=== PATIENT | female | born 1940 | race Caucasian/White ===

== ENCOUNTER 2017-10-15 13:10 | Inpatient (IN) | payer OTHER, SELFPAY ==
[~2017-10-15] VITALS: Ht 157.5 cm; Wt 59.0 kg
[2017-10-15 13:37] VITALS: BP 146/50
[2017-10-15] MEDS ORDERED: ZOCOR40 MG PO (13:44)
[2017-10-15] MEDS ORDERED: ALENDRONATE SODI5 MG PO (13:44)
[2017-10-15] MEDS ORDERED: MOBIC7.5 MG PO (13:44)
[2017-10-15] MEDS ORDERED: ASPIR 8181 MG PO (13:45)
[2017-10-15] MEDS ORDERED: CALCIUM 600 +1 EAC1 PO (13:45)
[2017-10-15] MEDS ORDERED: TRAZODONE HCL100 MG PO (13:45)
[2017-10-15] MEDS ORDERED: UNICOMPLEX M TA1 TA1 PO (13:46)
[2017-10-15 14:33] LABS: HEMATOCRIT 39.6 % (37.0-47.0); HEMOGLOBIN 13.1 gm/dL (12.0-15.0); MCH 31.3 pg (26.0-34.0); MCV 94.9 fL (80.0-100.0); MPV 7.8 fl. (7.2-11.1); NUCLEATED RBCS 0 /100WBC; PLATELET COUNT* 167 thou/uL (150-400); RBC 4.18 mil/uL (4.20-5.00); RDW-CV 12.6 % (10.5-14.5); WBC 13.8 thou/uL (4.0-11.0)
[2017-10-15 14:41] LABS: CREATININE 0.7 mg/dL (0.6-1.3); POTASSIUM 3.4 mmol/L (3.5-5.1)
[2017-10-15 14:45] LABS: APTT 22.1 Seconds (25.0-31.3); INR 1.1; PROTIME 10.4 Seconds (9.20-11.50)
[2017-10-15 14:55] LABS: ABSOLUTE BASOPHILS 0.1 thou/uL (0.0-0.2); ABSOLUTE LYMPHOCYTES 0.7 thou/uL (0.8-5.3); ABSOLUTE MONOCYTES 0.7 thou/uL (0.0-1.2); ABSOLUTE NEUTROPHILS 12.3 thou/uL (1.6-8.1)
[2017-10-15 15:01] LABS: PLATELET ESTIMATE ADEQUATE
[2017-10-15 17:50] VITALS: BP 153/42
[2017-10-15 22:05] VITALS: BP 120/50
--- NOTE | 2017-10-15 22:59 | NUR ---
PATIENT ARRIVED BY BED FROM PACU, STABLE CONDITION. ALERT AND ORIENTED X4. DENIES PAIN AT THIS TIME. VITALS STABLE. CONT PULSE OX IN PLACE, O2 SATS 99% ON 2L O2NC. CONTINUE TO MONITOR.
[2017-10-16] VITALS: BP 119/53
[2017-10-16 04:05] VITALS: BP 129/32
--- NOTE | 2017-10-16 04:19 | NUR ---
PATIENT RESTED QUIETLY THROUGHOUT THE NIGHT ON HOURLY ROUNDS. DENIES NEED FOR PAIN MEDICATION. REPOSITIONED FOR COMFORT. DRESSING TO RIGHT HIP CLEAN, DRY AND INTACT. VITALS STABLE ON 2L O2 NC. CONTINUE TO MONITOR.
[2017-10-16 04:32] LABS: HEMATOCRIT 26.5 % (37.0-47.0)
[2017-10-16 07:30] VITALS: BP 115/52
[2017-10-16 09:09] LABS: URINE BILIRUBIN NEGATIVE (Negative); URINE BLOOD TRACE (Negative); URINE CLARITY CLEAR; URINE COLOR YELLOW; URINE GLUCOSE-RANDOM NEGATIVE (Negative); URINE KETONES NEGATIVE (Negative); URINE NITRITE-REFLEX NEGATIVE (Negative); URINE PROTEIN NEGATIVE (Negative); URINE SPECIFIC GRAVITY <= 1.005 (1.005-1.030); URINE UROBILINOGEN 0.2 E.U./dl (0.2-1.0)
[2017-10-16 09:10] LABS: URINE LEUKOCYTES-REFLEX 2+ (Negative)
--- NOTE | 2017-10-16 09:54 | CON ---
[address] [address] CONSULTATION Name: MALATHI PLASENCIA Room: [address] IN [facility]#: [id number] Admission: 10/15/17 Attend Phys: Kwesi Romero MD Discharge: Date of : 40 Report #: [id number] THIS REPORT FOR: //name// CC: Titi Romero HISTORY OF PRESENT ILLNESS: This 76-year-old female seen complaining of severe pain about her right hip. She fell at her residence and was brought to the Emergency Room, where she was found to have a comminuted intertrochanteric and subtrochanteric fracture of her right hip. She was advised to become hospitalized for operative care of her injury. Once she is medically stable, she will be taken to surgery for an open reduction and internal fixation of her comminuted intertrochanteric and subtrochanteric fracture of the right femur. The risks and benefits of surgery along with possible complications were discussed with her. DIAGNOSIS: Displaced comminuted right hip fracture. <ELECTRONICALLY SIGNED> By: Aureliano Richter MD 10/16/17 0954 20 2046Jolynn Richter MD /nt
--- NOTE | 2017-10-16 09:54 | OP ---
[address] [address] OPERATIVE REPORT Name: MALATHI PLASENCIA Room: [address] IN [facility]#: [id number] Admission: 10/15/17 Attend Phys: Kwesi Romero MD Discharge: Date of : 40 Report #: [id number] THIS REPORT FOR: //name// CC: Titi Romreo PREOPERATIVE DIAGNOSIS: Displaced intertrochanteric fracture of the right hip. POSTOPERATIVE DIAGNOSIS: Displaced intertrochanteric fracture of the right hip. OPERATIVE PROCEDURE PERFORMED: Open reduction internal fixation with gamma nailing of fracture of the right hip. DESCRIPTION OF PROCEDURE: Following the procedure, under general endotracheal anesthesia, the patient was placed on to the fracture table in the supine position. The right leg was placed in traction, which reduced the fracture and held the fracture in anatomic position. A routine prep and drape was performed of the right hip and leg. Following a timeout procedure, a 2 inch skin incision was made at the tip of the greater trochanter. The incision was carried through the skin and subcutaneous tissue and fascia. An awl was used to make an opening at the piriformis fossa. A guidewire was passed across the fracture site under C-arm fluoroscopy control. A 13 mm flexible reamer was used over the guidewire. A 15.5 mm flexible reamer was used to ream the greater trochanteric area. A 38 cm gamma nail was inserted under C-arm fluoroscopy control. A 2 cm incision was made over the lateral aspect of the hip and a guidewire was passed through the gamma nail into the femoral head under C-arm fluoroscopy guidance. A compression screw was then inserted through the gamma nail and into the femoral head and it was appropriately locked. The tip of the gamma nail was locked with its 2 transfixing screws under C-arm fluoroscopy guidance. The wounds were irrigated and closed with 2-0 Vicryl for the fascial layer. The skin was closed with skin jeannette. A sterile dressing was applied. The patient tolerated the procedure well and was returned to the recovery area in good condition. <ELECTRONICALLY SIGNED> By: Aureliano Richter MD 10/16/17 0954 20 2323John Rohit Richter MD /nt
[2017-10-16 09:56] LABS: BACTERIA-REFLEX 1-9 Few /HPF (None Seen); CASTS None Seen /LPF (None Seen); CRYSTALS None Seen /LPF (None Seen); MUCUS 0-3 Light strn/LPF (None Seen); SQUAMOUS 0-3 Few /LPF (0-3); URINE RBC 0-2 Rare /HPF (0-2); URINE WBC-REFLEX 6-15 Few /HPF (0-5)
--- NOTE | 2017-10-16 14:40 | EKG ---
[place] [address] ELECTROCARDIOGRAM REPORT Name: PLASENCIAMALATHI Aster Room: [address] ADM IN [facility]#: [id number] Admission: 10/15/17 Attend Phys: Kwesi Romero MD Discharge: Date of : 40 Report #: [id number] THIS REPORT FOR: //name// [facility] ED Test Date: 2017-10-15 Test Time: 14:54:11 Pat Name: MALATHI PLASENCIA Department: Room: [facility] Gender: F Senior Mobile Application Developer: [place] : 1940 Requested By: Guero Larios Order Number: [id number] MD: Westley Flores Measurements Intervals [place] Rate: 72 P: 41 WV: 140 QRS: 64 QRSD: 78 T: 64 QT: 379 QTc: 415 Interpretive Statements Sinus rhythm No previous ECG available for comparison Electronically Signed On 10-16-2017 14:40:11 [employer]LOCK ELAST[employer] ATTACHER by Westley Flores [email or web address] <ELECTRONICALLY SIGNED> By: Westley Flores MD, [facility] 10/16/17 1440 1454 1454 Westley Flores MD, FACC /EPI
--- NOTE | 2017-10-16 14:48 | NUR ---
PT.UP IN CHAIR. VISITOR PRESENT. SHE SAID VISITOR COULD STAY FOR CONVERSATION. VISITOR IS HER DAUGHTER'S MOTHER IN LAW. PT.ALERT AND ORIENTED. STATED SHE LIVES IN AN APT.ATTACHED TO HER DAUGHTER'S HOUSE. NO STAIRS,IT IS [place]. HER DAUGHER WORKS DURING THE DAY UNTIL ABOUT 1:30 IN THE AFTERNOON. FRIEND AT BEDSIDE DRIVES HER TO APPTS.DURING THE DAY,ETC. PT.NO LONGER DRIVES. SHE DOES NOT USE ANY DME. NO HX OF OR SNF. GAVE HER A LIST OF INSURANCE CONTRACTED SNFS SHE WOULD GO TO IF NEEDED. DISCHARGE PLAN TO BE DETERMINED ON HOW PT. DOES IN THERAPY. FRIEND SAID SHE COULD COME TO STAY AT HER HOME,IF NEEDED. SHE LIVES IN [place]. SHE HAS STEPS TO GET INTO HER HOME,HOWEVER. 7 STEPS THEN 5 TO GET IN. CM WILL FOLLOW UP TOMORROW.
[2017-10-16 16:06] VITALS: BP 118/59
--- NOTE | 2017-10-16 16:14 | NUR ---
PATIENT REMAINED ALERT AND ORIENTED X'S 4. VITAL SIGNS AND SPO2 STABLE. SKIN LOOKS GOOD. DRESSING OVER RIGHT HIP CLEAN, DRY, INTACT. TOLERATED ANTIBIOTICS. ARGUETA PULLED, VOIDED WITHOUT ISSUE. TOLERATED PT/OT. SCD'S IN PLACE, NO TEDS ORDERED. TOLERATED Q.2.TURNS. TOE TOUCH WEIGHT BEARING. PAIN WELL CONTROLLED WITH PAIN MEDS. COMPLETED HOURLY ROUNDING, CALL LIGHT WITHIN REACH. WILL CONTINUE TO MONITOR.
[2017-10-16 19:35] VITALS: BP 130/39
[2017-10-17 00:13] VITALS: BP 125/39
[2017-10-17 04:20] LABS: HEMATOCRIT 24.3 % (37.0-47.0); HEMOGLOBIN 8.3 gm/dL (12.0-15.0)
[2017-10-17 04:21] VITALS: BP 133/38
--- NOTE | 2017-10-17 06:35 | NUR ---
PT PROGRESSING TOWARD GOALS. PT WAS ABLE TO AMBULATE WITH ASSISTANCE TO THE BSC. PT REQUESTED TO STAY ON HER LEFT SIDE DURING THE EVENING. PT WAS ABLE TO REST WITHOUT COMPLAINT OF PAIN.
[2017-10-17 07:45] VITALS: BP 125/58
--- NOTE | 2017-10-17 15:30 | NUR ---
SPOKE WITH PT.AND DAUGHTER ABOUT DISCHARGE PLANNING. THEY HAD LOOKED AT LIST I HAD GIVEN TO PT.YESTERDAY. THEIR FIRST CHOICE WOULD BE [facility] AND [facility] (EITHER ONE,DAUGHTER,STATED). WILL MAKE REFERRAL TO [facility].
--- NOTE | 2017-10-17 16:06 | NUR ---
PATIENT REMAINED ALERT AND ORIENTED X'S 4. VITAL SIGNS AND SPO2 STABLE. IV CLEAN, FLUSHING. COMPLETED PT/OT. PAIN WELL CONTROLLED WITH PAIN MEDS. TOLERATED DIET, NO NAUSEA AND VOMITING. SKIN LOOKS GOOD. DRESSING OVER HIP CLEAN, DRY, INTACT. COMPLETED HOURLY ROUNDING. CALL LIGHT WITHIN REACH. WILL CONTINUE TO MONITOR.
[2017-10-17 17:16] VITALS: BP 149/43
[2017-10-17 20:00] VITALS: BP 146/36
[2017-10-17 23:30] VITALS: BP 124/23
[2017-10-18 04:00] VITALS: BP 105/50
--- NOTE | 2017-10-18 06:23 | NUR ---
Alert and oriented x 4. Rt hip dressings x 2 are dry and intact. She's up with assist x 1 and walker to bedside commode. Toe touch weight bearing to RLE. She's had pain meds x 2 this shift.She has slept well.
[2017-10-18 08:44] VITALS: BP 134/51
[2017-10-18 16:29] VITALS: BP 141/50
--- NOTE | 2017-10-18 18:10 | NUR ---
PT UP IN CHAIR MOST OF SHIFT. UP WITH ASSIST TO BSC AND WALKER. PT DENIES NEED FOR PAIN MEDS UNTIL THIS EVENING. PT TOLERATING PO WELL. PARTICIPATED IN THERAPY. PLAN TO DC TO SNU IN AM WHEN BED AVAILABLE
[2017-10-18 20:00] VITALS: BP 117/60
[2017-10-19] VITALS: BP 111/48
[2017-10-19 04:06] VITALS: BP 104/41
[2017-10-19 04:21] LABS: HEMATOCRIT 20.1 % (37.0-47.0); HEMOGLOBIN 7.3 gm/dL (12.0-15.0); MCH 32.5 pg (26.0-34.0); MCHC 36.2 g/dL (28.0-37.0); MCV 89.7 fL (80.0-100.0); MPV 7.5 fl. (7.2-11.1); RBC 2.23 mil/uL (4.20-5.00); RDW-CV 12.7 % (10.5-14.5)
[2017-10-19 04:47] LABS: ALBUMIN 2.4 g/dL (3.4-5.0); CALCIUM 8.2 mg/dL (8.5-10.1); CREATININE 0.7 mg/dL (0.6-1.3); POTASSIUM 4.5 mmol/L (3.5-5.1); TOTAL BILIRUBIN 0.5 mg/dL (<0.1-1.0); TOTAL PROTEIN 4.6 g/dL (6.4-8.2)
--- NOTE | 2017-10-19 04:53 | NUR ---
Alert and oriented x 4. Rt hip dressings x 2 dry and intact. She is up with assist x 1 and walker to bedside commode. She has good urine output, shehas bowel sounds x 4 and passing flatus. Bisacodyl tabs given at bedtime. She had pain meds x 1 at bedtime. Encouraged I.S. for low grade temp. She has slept well.
[2017-10-19 07:30] VITALS: BP 127/48
[2017-10-19 11:21] VITALS: BP 127/48
[2017-10-19] MEDS ORDERED: HYDROCODONE-AP1 EAC6 PO (12:48)
[2017-10-19] MEDS ORDERED: COLACE100 MG PO (12:52)
[2017-10-19] MEDS ORDERED: XARELTO10 MG PO (12:52)
--- NOTE | 2017-10-19 14:51 | NUR ---
INITIALLY, [facility] SAID THEY DID NOT HAVE BED AVAILABILITY FOR TODAY,FOR PT. CM LEFT FOR DAUGHTER TO SEE WHICH FACILITY SHE WOULD WANT 2ND CHOICE. IN THE MEANTIME, [facility] CALLED BACK AND SAID THEY DID HAVE A BED NOW FOR PT. SHE IS GETTING INSURANCE AUTH FOR PT.TO COME THERE. INFORMED PT.SHE CAN NOW GO TO [facility] AND SHE IS HAPPY. CHART TO BE COPIED TO GO WITH PT. NURSING TO CALL REPORT TO [phone]. [facility] TO TRANSPORT PT. AWAITING INSURANCE AUTH AND DISCHARGE TIME.
[2017-10-19 15:32] VITALS: BP 139/50
--- NOTE | 2017-10-19 17:50 | NUR ---
ALERT AND ORIENTED X4. UP WITH ASSIST X1 WITH WALKER AND GAIT BELT. IV IS PATENT AND SALINE LOCKED. PAIN IS BEING MANAGED WITH PO PAIN MEDICATION. DENIES NAUSEA. ATTENDED PHYSICAL AND OCCUPATIONAL THERAPY THIS AM. VSS ON ROOM AIR. HOURLY ROUNDS HAVE BEEN MAINTAINED THROUGHOUT SHIFT. CALL LIGHT IS WITHIN REACH. NURSING WILL CONTINUE TO MONITOR.
[2017-10-19 20:00] VITALS: BP 141/53
[2017-10-20 00:38] VITALS: BP 122/44
[2017-10-20 04:09] VITALS: BP 123/55
--- NOTE | 2017-10-20 05:22 | NUR ---
PATIENT IS ALERT AND ORIENTED X 4. VSS ON RA. PAIN WELL CONTROLLED WITH ORAL PAIN MEDICATIONS. PATIENT IS UP WITH ASSIST X 1 WITH WALKER AND GAITBELT TO [facility]. DRESSING TO RIGHT HIP IS C/D/I, SCD'S IN PLACE. IV IN LEFT AC-SL. PATIENT INSTRUCTED TO USE CALL LIGHT WHEN NEEDING ASSISTANCE. HOURLY ROUNDS MADE. WILL CONTINUE WITH PLAN OF CARE AND NURSING TO MONITOR.
[2017-10-20 07:30] VITALS: BP 125/39
--- NOTE | 2017-10-20 12:04 | NUR ---
[facility] OBTAINED INSURANCE AUTHORIZATION FOR PT.TO COME TO SKILLED BED. THEY WILL PICK PT.UP AT 1430 IN [facility]. FAXED DISCHARGE ORDERS TO [facility] [phone]. PT.INFORMED. CHART COPIED TO GO WITH PT. SHIRIN SALEH WILL CALL REPORT.
[2017-10-20 16:39] VITALS: BP 127/48
--- NOTE | 2017-10-20 16:40 | NUR ---
PATIENT LEFT UNIT AT 1505. ALERT AND ORIENTED X4. UP WITH ASSISTANCE X1 WITH WALKER AND GAIT BELT. IV DC'D. PAIN BEING MANAGED WITH PO PAIN MEDICATION. DENIES NAUSEA. ATTENDED PHYSICAL THERAPY THIS AM. ALL PERSONAL ITEMS LEFT WITH PATIENT. DISCHARGE INSTRUCTIONS AND PRESCRIPTIONS SENT WITH PATIENT TO THE SKILLED FACILITY. VSS ON ROOM AIR. HOURLY ROUNDS HAVE BEEN MAINTAINED THROUGHOUT SHIFT. LEFT WITH TRANSPORTOR VIA WHEELCHAIR [facility]. REPORT GIVEN TO SHELLY AT [facility].
== END 2017-10-20 15:20 | DRG 481 ==
LOC: M.ERS 13:10 → M.ORTHSURG 16:25 → M.TBA-ER 16:25 → M.ORTHSURG 22:08
PROVIDERS: Nurse Practitioner Family; Specialist; ADMIT Internal Medicine
PROC: 0QS604Z Reposition Right Upper Femur with Internal Fixation Device, Open Approach (ICD-10-PCS; principal; 2017-10-15)
DX: M80.051A Age-related osteoporosis with current pathological fracture, right femur, initial encounter for fracture (principal); R65.10 Systemic inflammatory response syndrome (SIRS) of non-infectious origin without acute organ dysfunction; E44.0 Moderate protein-calorie malnutrition; W18.39XA Other fall on same level, initial encounter; M19.90 Unspecified osteoarthritis, unspecified site; H35.30 Unspecified macular degeneration; F32.9 Major depressive disorder, single episode, unspecified; E78.5 Hyperlipidemia, unspecified; D72.829 Elevated white blood cell count, unspecified; E87.6 Hypokalemia; Y93.89 Activity, other specified; Y92.098 Other place in other non-institutional residence as the place of occurrence of the external cause; Y99.8 Other external cause status; Z82.49 Family history of ischemic heart disease and other diseases of the circulatory system

== ENCOUNTER → 2019-11-15 | Outpatient (CLI) | payer OTHER ==
[~2019-11-15] MED LIST: ALENDRONATE SODI5 MG PO; ASPIR 8181 MG PO; CALCIUM 600 +1 EAC1 PO; COLACE100 MG PO; HYDROCODONE-AP1 EAC6 PO; MOBIC7.5 MG PO; TRAZODONE HCL100 MG PO; UNICOMPLEX M TA1 TA1 PO; XARELTO10 MG PO; ZOCOR40 MG PO
== END ==
LOC: M.RAD 10:36
DX: Z12.31 Encounter for screening mammogram for malignant neoplasm of breast (principal); M81.0 Age-related osteoporosis without current pathological fracture

== ENCOUNTER 2020-06-15 13:50 | Emergency (ER) | payer OTHER ==
[~2020-06-15] VITALS: Ht 157.5 cm; Wt 65.8 kg
[2020-06-15] MEDS ORDERED: NORCO 5-325 TA1 EAC2 PO (15:19)
[2020-06-15] MEDS ORDERED: KEFLEX500 M1 PO (15:19)
[2020-06-15 16:06] VITALS: BP 180/75
== END 2020-06-15 16:06 | disposition home or self-care (01) ==
LOC: M.ERS 13:50
DX: S52.591A Other fractures of lower end of right radius, initial encounter for closed fracture (principal); M19.90 Unspecified osteoarthritis, unspecified site; Z86.2 Personal history of diseases of the blood and blood-forming organs and certain disorders involving the immune mechanism; W07.XXXA Fall from chair, initial encounter; Y93.89 Activity, other specified; Y92.89 Other specified places as the place of occurrence of the external cause; Y99.8 Other external cause status